=== PATIENT | male | born 2000 | race Caucasian/White ===

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

== ENCOUNTER 2024-01-23 21:25 | Emergency (ER) | payer OTHER ==
[~2024-01-23] VITALS: Ht 172.7 cm; Wt 85.0 kg
[~2024-01-23 21:25] MED LIST changes: +ACETAMINOPHEN325 M1 PO; +HYDROCODON-ACE1 EA11 PO; +ONDANSETRON HCL4 MG PO
[2024-01-23] MEDS ORDERED: KETOROLAC TROMETHAMINE 30 MG/ML VIAL IV ONE (23:30)
[2024-01-23] MEDS ORDERED: HYDROmorphone HCL 1 MG/ML SYR IV PRN (23:30)
[2024-01-24] MEDS ORDERED: PREDNISONE20 MG PO (01:43)
[2024-01-24] MEDS ORDERED: LIDODERM1 EACH TOP (01:43)
[2024-01-24] MEDS ORDERED: CYCLOBENZAPRINE10 MG PO (01:43)
[2024-01-24] MEDS ORDERED: LIDOCAINE HCL 4% 1 EACH PATCH TD ONE (01:45)
[2024-01-24 02:00] VITALS: BP 134/74
[2024-01-24] MEDS ORDERED: OXYCODONE/ACETAMINOPHEN 1 TAB HOME.PACK PO ONE (02:00)
[2024-01-24] MEDS ORDERED: LIDOCAINE PATCH REMOVAL 1 EA TD SCH (21:00)
== END 2024-01-24 02:00 | disposition home or self-care (01) ==
LOC: ED 21:25
DX: S39.012A Strain of muscle, fascia and tendon of lower back, initial encounter (principal); W10.2XXA Fall (on)(from) incline, initial encounter; F17.200 Nicotine dependence, unspecified, uncomplicated; Z91.041 Radiographic dye allergy status; Z91.013 Allergy to seafood
CPT/HCPCS: 72128; 72131; 96374; 96375; 96376; 99283-25; A9270; J1171; J1885